=== PATIENT | male | born 1995 | race African-American/Black ===

== ENCOUNTER 2017-01-10 23:49 | Emergency (ER) | payer OTHER ==
[~2017-01-10] VITALS: Ht 180.3 cm; Wt 88.3 kg
[~2017-01-10 23:49] MED LIST: PERCOCET 5/31 TABLET PO
[2017-01-11] MEDS ORDERED: HYDROXYZINE HCL25 MG PO (00:23)
[2017-01-11] MEDS ORDERED: MEDROL DOSEPAK4 MG PO (00:23)
[2017-01-11 00:40] VITALS: BP 126/64
== END 2017-01-11 00:44 | disposition home or self-care (01) ==
LOC: EME 23:49
DX: L25.8 Unspecified contact dermatitis due to other agents (principal)
CPT/HCPCS: 99281; 99284; J7512; Q0177

== ENCOUNTER 2017-01-27 03:26 | Emergency (ER) | payer OTHER ==
[~2017-01-27] VITALS: Ht 180.3 cm; Wt 88.0 kg
[~2017-01-27 03:26] MED LIST changes: +HYDROXYZINE HCL25 MG PO; +MEDROL DOSEPAK4 MG PO
[2017-01-27 03:31] VITALS: BP 132/63
[2017-01-27] MEDS ORDERED: ELIMITE 5% CREA60 GM TP (04:05)
[2017-01-27] MEDS ORDERED: DELTASONE20 M1 PO (04:05)
[2017-01-27] MEDS ORDERED: ATARAX,VISTARIL50 MG PO (04:05)
== END 2017-01-27 04:17 | disposition home or self-care (01) ==
LOC: EME 03:26
DX: B86 Scabies (principal)
CPT/HCPCS: 99281; 99283

== ENCOUNTER 2017-02-06 01:30 | Emergency (ER) | payer OTHER ==
[~2017-02-06] VITALS: Ht 180.3 cm; Wt 92.5 kg
[~2017-02-06 01:30] MED LIST changes: +ATARAX,VISTARIL50 MG PO; +DELTASONE20 M1 PO; +ELIMITE 5% CREA60 GM TP
[2017-02-06] MEDS ORDERED: ELIMITE 5% CREA60 GM TP (01:46)
[2017-02-06 02:13] VITALS: BP 125/69
== END 2017-02-06 02:14 | disposition home or self-care (01) ==
LOC: EME 01:30
DX: B86 Scabies (principal)
CPT/HCPCS: 99281; 99283